=== PATIENT | female | born 1965 | race Caucasian/White ===

== ENCOUNTER → 2016-10-23 | Day surgery (SDC) | payer OTHER ==
[~2016-10-23] MED LIST: ASPIR 8181 MG PO; BUSPIRONE HCL5 MG PO; LIPITOR20 MG PO; NORVASC 5 MG TAB5 MG PO; VITAMIN D50000 UNIT PO
== END | disposition home or self-care (01) ==
LOC: OR 06:21
PROVIDERS: Internal Medicine Gastroenterology
PROC: 0DB68ZX Excision of Stomach, Via Natural or Artificial Opening Endoscopic, Diagnostic (ICD-10-PCS; principal; 2016-10-23 08:00)
PROC: 0DJD8ZZ Inspection of Lower Intestinal Tract, Via Natural or Artificial Opening Endoscopic (ICD-10-PCS; 2016-10-23 08:00)
DX: Z12.11 Encounter for screening for malignant neoplasm of colon (principal); K29.50 Unspecified chronic gastritis without bleeding; K44.9 Diaphragmatic hernia without obstruction or gangrene; K21.0 Gastro-esophageal reflux disease with esophagitis; K22.10 Ulcer of esophagus without bleeding; K64.0 First degree hemorrhoids; K59.8 Other specified functional intestinal disorders; E66.9 Obesity, unspecified; I10 Essential (primary) hypertension; Z79.82 Long term (current) use of aspirin; Z79.899 Other long term (current) drug therapy; Z90.49 Acquired absence of other specified parts of digestive tract
CPT/HCPCS: J7030

== ENCOUNTER → 2021-04-04 | Outpatient (CLI) | payer OTHER | LOC: HEART 5 15:00 | DX: R00.2 Palpitations (principal) ==

== ENCOUNTER → 2021-05-03 | Outpatient (CLI) | payer OTHER ==
[2021-05-03 10:12] LABS: HEMOGLOBIN 13.8 gm/dl (12.3-15.3); RED BLOOD COUNT 4.29 M/UL (4.00-5.10); WHITE BLOOD COUNT 5.8 K/UL (4.5-11.0)
[2021-05-03 10:39] LABS: BUN/CREATININE RATIO 12 (0-10)
== END ==
LOC: LAB 09:26
PROVIDERS: Internal Medicine
DX: E78.5 Hyperlipidemia, unspecified (principal); I10 Essential (primary) hypertension; R73.01 Impaired fasting glucose; L40.50 Arthropathic psoriasis, unspecified; D51.8 Other vitamin B12 deficiency anemias; E55.9 Vitamin D deficiency, unspecified; Z79.899 Other long term (current) drug therapy
CPT/HCPCS: 36415; 80053; 80061; 82607; 82746; 83036; 84439; 84443; 85025

== ENCOUNTER → 2021-08-16 | Outpatient (CLI) | payer OTHER | LOC: EROP 13:44 | DX: U07.1 COVID-19 (principal); Z23 Encounter for immunization; L40.50 Arthropathic psoriasis, unspecified; D84.821 Immunodeficiency due to drugs; Z79.899 Other long term (current) drug therapy; I47.1 Supraventricular tachycardia; I10 Essential (primary) hypertension | CPT/HCPCS: M0247; Q0247 ==